=== PATIENT | female | born 1955 | race Caucasian/White ===

== ENCOUNTER 2019-02-23 09:11 | Inpatient (IN) | payer MEDICARE, BC ==
[~2019-02-23] VITALS: Ht 170.2 cm; Wt 50.4 kg
[2019-02-23] VITALS (392 sets, daily range): BP systolic 16–119; BP diastolic 48–64; PULSE 60–88; TEMP 97.5–98.3; O2SAT 90–100
[2019-02-23 09:55] LABS: BASO # 0.1 (0.0-0.2); BASO % 0.6 % (0.0-2.0); EOS # 0.1 (0.0-0.7); GRAN # 9.2 (1.4-6.5); GRAN % 76.1 % (42.2-75.2); HEMATOCRIT 40.4 % (37.0-47.0); HEMOGLOBIN 13.6 g/dl (12.5-16.0); LYMPH # 2.1 (1.2-3.4); LYMPH % 17.5 % (20.0-51.0); MEAN CELL VOLUME 94 fl (80.0-100.0); MEAN CORPUSCULAR HEMOGLOBIN 32 pg (27.0-31.0); MEAN CORPUSCULAR HGB CONC 34 g/dl (33.0-37.0); MEAN PLATELET VOLUME 10.4 fl (7.4-10.4); MONO # 0.5 (0.1-0.6); MONO % 4.4 % (1.7-9.3); PLATELET COUNT 221 K/mm3 (130-400); RED BLOOD COUNT 4.32 M/mm3 (4.10-5.30); REDCELL DISTRIBUTION WIDTH-CV 12.8 % (11.5-14.5)
[2019-02-23 09:59] LABS: ALANINE AMINOTRANSFERASE 38 U/L (9-52); ALBUMIN 4.3 gm/dL (3.5-5.0); ALKALINE PHOSPHATASE 120 U/L (50-136); ANION GAP 18 mmol/L (7-16); AST,SGOT 43 U/L (15-37); BLOOD UREA NITROGEN 21 mg/dL (7-17); CALCIUM 9.3 mg/dL (8.4-10.2); CARBON DIOXIDE 20 mmol/L (22-30); CHLORIDE 98 mmol/L (98-107); CREATININE, serum 0.82 (0.52-1.25); GLUCOSE 361 mg/dL (74-106); LIPASE 70 U/L (23-300); POTASSIUM 4.5 mmol/L (3.4-5.0); SODIUM 137 mmol/L (137-145); TOTAL PROTEIN 6.9 gm/dL (6.4-8.2)
[2019-02-23 10:11] LABS: TROPONIN-I < 0.012 ng/mL (0.000-0.035)
[2019-02-23 11:24] LABS: COLLECTION METHOD CLEAN CATCH
[2019-02-23 11:31] LABS: PH 5 (5-8); SQUAMOUS EPITHELIAL 0-2 /hpf; URINE APPEARANCE Clear; URINE BACTERIA None Seen /hpf; URINE BILIRUBIN Negative (NEGATIVE); URINE BLOOD Negative (NEGATIVE); URINE COLOR Straw; URINE GLUCOSE 3+ (NEGATIVE); URINE KETONE 2+ (NEGATIVE); URINE LEUKOCYTE ESTERASE Negative (NEGATIVE); URINE NITRATE Negative (NEGATIVE); URINE PROTEIN(semi-quant) Negative (NEGATIVE); URINE RBC 0-2 /hpf; URINE UROBILINOGEN Negative (NEGATIVE)
[2019-02-23] MEDS ORDERED: NOVOLIN R100 U/ML ×2 (12:05→12:08)
[2019-02-23] MEDS ORDERED: LANTUS100 U/ML (12:08)
[2019-02-23 14:48] LABS: ANION GAP 11 mmol/L (7-16); BLOOD UREA NITROGEN 18 mg/dL (7-17); CALCIUM 8.2 mg/dL (8.4-10.2); CARBON DIOXIDE 19 mmol/L (22-30); CHLORIDE 106 mmol/L (98-107); GLUCOSE 257 mg/dL (74-106); MAGNESIUM 1.9 mg/dL (1.6-2.3); PHOSPHOROUS 3.4 mg/dL (2.5-4.5); POTASSIUM 4.6 mmol/L (3.4-5.0); SODIUM 136 mmol/L (137-145)
[2019-02-23 15:06] LABS: TROPONIN-I < 0.012 ng/mL (0.000-0.035)
--- NOTE | 2019-02-23 15:25 | NUR ---
ECHO BEING PERFORMED
--- NOTE | 2019-02-23 15:35 | NUR ---
NOTIFIED DR KEARNS OF CARDIOLOGY CONSULT
[2019-02-23 17:44] LABS: ANION GAP 11 mmol/L (7-16); BLOOD UREA NITROGEN 17 mg/dL (7-17); CALCIUM 8.2 mg/dL (8.4-10.2); CARBON DIOXIDE 17 mmol/L (22-30); CHLORIDE 107 mmol/L (98-107); CREATININE, serum 0.72 (0.52-1.25); GLUCOSE 270 mg/dL (74-106); POTASSIUM 4.7 mmol/L (3.4-5.0); SODIUM 136 mmol/L (137-145)
[2019-02-23 17:56] LABS: TROPONIN-I < 0.012 ng/mL (0.000-0.035)
[2019-02-24] VITALS (806 sets, daily range): BP systolic 83–106; BP diastolic 49–60; PULSE 54–57; TEMP 98–98.2; O2SAT 69–100
[2019-02-24 00:31] LABS: CALCIUM 7.7 mg/dL (8.4-10.2); CREATININE, serum 0.86 (0.52-1.25); POTASSIUM 3.7 mmol/L (3.4-5.0)
--- NOTE | 2019-02-24 04:00 | NUR ---
Patient BP decreased at 83/49, MAP of 66 when patient is sleeping. Patient stated her BP normally runs in the 70's - 80's systolically, discussed case with SAVI Arce and was ok with BP at this time.
[2019-02-24 05:38] LABS: BASO % 0.5 % (0.0-2.0); EOS # 0.1 (0.0-0.7); EOS % 2.3 % (0-4.0); GRAN # 3.4 (1.4-6.5); GRAN % 54.4 % (42.2-75.2); LYMPH # 2.3 (1.2-3.4); LYMPH % 36.8 % (20.0-51.0); MEAN CELL VOLUME 97 fl (80.0-100.0); MEAN CORPUSCULAR HGB CONC 34 g/dl (33.0-37.0); MEAN PLATELET VOLUME 10.4 fl (7.4-10.4); MONO # 0.4 (0.1-0.6); MONO % 5.7 % (1.7-9.3); PLATELET COUNT 135 K/mm3 (130-400); RED BLOOD COUNT 3.21 M/mm3 (4.10-5.30); REDCELL DISTRIBUTION WIDTH-CV 13.3 % (11.5-14.5)
[2019-02-24 05:44] LABS: HEMOGLOBIN 10.4 g/dl (12.5-16.0); MEAN CORPUSCULAR HEMOGLOBIN 32 pg (27.0-31.0)
[2019-02-24 05:49] LABS: CALCIUM 7.7 mg/dL (8.4-10.2); CHOLESTEROL RISK RATIO 1.9; CREATININE, serum 0.84 (0.52-1.25); POTASSIUM 3.9 mmol/L (3.4-5.0)
--- NOTE | 2019-02-24 07:00 | NUR ---
Bedside shift report received from HUONG Hampton. Patient is sitting up in bed, in no apparent distress, with no complaints or concerns at this time. Full assessment completed. Vital signs stable. Call light and personal items within reach. Bed in lowest position. Side rails up x3.
--- NOTE | 2019-02-24 10:41 | NUR ---
Patient is supposed to be released today. Visited, listened, provided spiritual care.
[2019-02-24] MEDS ORDERED: ASPI325T6 PO (11:44)
--- NOTE | 2019-02-24 15:12 | NUR ---
KELVIN met with the patient to discuss a discharge plan. The pt lives in [place] with her daughter and four grandchildren. The pt does not use DME and reports independence with ADLs. The pt's PCP is Dr. Durham and receives medications from [facility] or [facility] in [facility] with no difficulties. The pt does not have advanced directives in the EMR but reports she is in the process of completing them. The pt plans to return home upon discharge with her daughter providing transportation. There are no additional needs at this time.
--- NOTE | 2019-02-24 15:20 | NUR ---
Patient educated and given discharge paperwork. Patient has no questions or concerns at this time. IV discontinued. Patient accompanied to private vehicle by RN and patient's daughter, who is driving her home.
== END 2019-02-24 15:20 | disposition home or self-care (01) | DRG 638 ==
LOC: COL.ER 09:11 → ICU 12:15
PROVIDERS: Emergency Medicine; Nurse Practitioner Family; ADMIT Family Medicine
DX: E10.10 Type 1 diabetes mellitus with ketoacidosis without coma (principal); Z68.1 Body mass index [BMI] 19.9 or less, adult; E44.0 Moderate protein-calorie malnutrition; K21.9 Gastro-esophageal reflux disease without esophagitis; F17.210 Nicotine dependence, cigarettes, uncomplicated; R07.89 Other chest pain; R63.4 Abnormal weight loss; J44.9 Chronic obstructive pulmonary disease, unspecified
CPT/HCPCS: 99222-AI; 99239; C9113; J1650; J1815; J2405; J7030; Q9967